=== PATIENT | female | born 1985 | race Caucasian/White ===

== ENCOUNTER 2020-10-10 09:23 | Emergency (ER) | payer OTHER, SELFPAY ==
--- NOTE | ~2020-10-10 | XR_ITS ---
EXAMINATION: XR chest 2V DATE: 10/10/2020 10:45 INDICATION: Tachycardia TECHNIQUE: PA and lateral views of the chest were obtained. COMPARISON: None FINDINGS: The lungs are clear with no focal airspace opacities, pulmonary edema, pleural effusion or pneumothor ax. The cardiomediastinal silhouette is normal. Cholecystectomy clips in the right upper quadrant. Vi sualized bones and soft tissues are unremarkable. IMPRESSION: 1. No acute cardiopulmonary disease. Reviewed, dictated and finalized at location A. IVING INSTRUCTOR
--- NOTE | ~2020-10-10 | CT_ITS ---
EXAMINATION: CT abdomen pelvis wo con EXAM DATE: 10/10/2020 10:31 INDICATION: Epigastric abdominal pain. TECHNIQUE: Spiral CT of the abdomen and pelvis was performed without contrast. Axial, coronal and s agittal images were reviewed. The dose-length product (DLP) for this examination was 336.76 mGy-cm. The exposure was tailored according to patient size (auto mA exposure control), and iterative recons truction (ASIR) was used as additional dose reduction technique. Comparison is made to prior examinat ion from 01/02/2011. FINDINGS: The liver, spleen, adrenal glands and pancreas are unremarkable. There are cholecystectomy clips. There are several small right calyceal stones. No hydronephrosis or ureteral stones. There i s a 2 cm left renal cyst. Uterus is retroverted. Right ovary measures 3 x 5 cm without adjacent infl ammation. The bladder is unremarkable. There is no retroperitoneal or pelvic lymphadenopathy. There are surgical changes consistent with appendectomy. The stomach and small bowel are unremarkab le. There is expected amount of colonic stool. No free intraperitoneal gas. The heart is normal in size. There are no pericardial or pleural effusions. The lung bases are unremarkable. There is new region of vague sclerosis in the right iliac crest compared to prior study in 2010, most likely benign finding. There are several bone islands which are unchanged compared to prior study. IMPRESSION: 1. No acute intra-abdominal findings. 2. Vague sclerotic region in right iliac crest, likely benign given patient's age and assumed absenc e of known primary malignancy. If clinically indicated, could obtain follow-up nonemergent bone scan. Reviewed, dictated and finalized at location G. K WORKER IMPRESSION: 1. No acute intra-abdominal findings. 2. Vague sclerotic region in right iliac crest, likely benign given patient's age and assumed absence of known primary malignancy. If clinically indicated, c ould obtain follow-up nonemergent bone scan.
[2020-10-10 09:35] VITALS: BP 108/77; PULSE 72; RESP 18; TEMP 36.1; O2SAT 99
--- NOTE | 2020-10-10 09:38 | ED.ABDPAIN ---
HPI - Abdominal Pain General Chief Complaint: Abdominal Pain Stated Complaint: UPPER ABD PAIN Time Seen by Provider: 10/10/20 09:38 Source: patient and family Mode of arrival: ambulatory Limitations: no limitations History of Present Illness HPI narrative: Patient is a 35-year-old female with a history of cholecystectomy, appendectomy, who presents for evaluation of upper abdominal pain. Patient states she initially awakened around 4 in the morning with upper back pain, epigastric abdominal pain described as a pressure. She denied any chest pain, denies any shortness of breath. No pleuritic pain. She denies fever or chills. She has had nausea and vomiting. She denies lower abdominal pain. Patient states he feels similar to when she initially had gallbladder attacks. No urinary symptoms. No diarrhea. Patient is not a smoker. No recent car or air travel, no recent surgery. Related Data Allergies Allergy/AdvReac Type Severity Reaction Status Date / Time gadobenic acid Allergy Unknown Itching Verified 10/10/20 10:08 [From contrast - MRI] Iodinated Contrast Media Allergy Unknown Itching Verified 10/10/20 10:08 iohexol Allergy Unknown Itching Verified 10/10/20 10:08 [From contrast - CT, X-RAY] Review of Systems Review of Systems: Narrative: CONSTITUTIONAL: Denies fever, chills, or sweats. EYES: Denies visual changes, redness, or discharge. ENT: Denies rhinorrhea, congestion, sore throat, or otalgia. CARDIOVASCULAR: Denies chest pain, reports intermittent palpitations over the past 3 days. RESPIRATORY: Denies cough or dyspnea. GASTROINTESTINAL: Reports epigastric abdominal pain, nausea and vomiting GENITOURINARY: Denies dysuria or hematuria. SKIN: Denies rash or itching. MUSCULOSKELETAL: Reports upper back pain NEUROLOGIC: Denies headache, numbness, or weakness. [facility] Past Medical History Medical History (Updated 10/10/20 @ 11:39 by Lydia Childers MD) No pertinent past medical history Surgical History Surgical History (Updated 10/10/20 @ 09:51 by Lydia Childers MD) History of appendectomy Hx of cholecystectomy Social History Social History (Updated 10/10/20 @ 09:51 by Lydia Childers MD) Smoking status: Never smoker Alcohol intake: current Alcohol use details: Social, rare Substance use: never Living arrangements: with family Gender identity (if verbalized by the patient): Female Exam Narrative: Exam Narrative: GENERAL: Awake, alert, conversant HEAD: Normocephalic, atraumatic. EYES: PERRLA and EOMI. ENT: Nares clear, no rhinorrhea or epistaxis. Mucous membranes moist. NECK: Supple. CHEST: No respiratory distress, breathing even and non labored HEART: Regular rate, sinus rhythm ABDOMEN:Non distended, mild tenderness in the epigastrium which reproduces pain, guarding, no rebound, nonrigid EXTREMITIES: Normal range of motion. No edema. SKIN: Warm, dry, no rash. NEURO:No focal deficits. Alert and oriented x3 Course Vital Signs Vital signs: Vital Signs Temperature 36.1 C L 10/10/20 09:35 Pulse Rate 72 10/10/20 09:35 Respiratory Rate 18 10/10/20 09:35 Blood Pressure 108/77 10/10/20 09:35 Pulse Oximetry 99 10/10/20 09:35 Temperature 36.1 C L 10/10/20 09:35 Pulse Rate 65 10/10/20 11:00 Respiratory Rate 18 10/10/20 09:35 Blood Pressure 108/67 10/10/20 11:00 Pulse Oximetry 99 10/10/20 11:00 MDM - Abdominal Pain MDM Narrative Medical decision making narrative: Patient presented for epigastric pain, radiation to the back with concern for intermittently rapid heart rate. At the time of assessment, patient's vital signs are stable. No sign of arrhythmia. No hypotension. Patient is afebrile and in no acute distress. Mild epigastric tenderness on exam. No lower abdominal tenderness. Patient was given IV fluids, antiemetic to help with pain management and nausea. Patient was reassessed, and patient's abdomen is soft without significant pain
[2020-10-10 09:45] VITALS: BP 122/87; PULSE 91; O2SAT 99
--- NOTE | 2020-10-10 09:48 | ECG_ITS ---
Measurements Intervals [place] Rate: 68 P: 27 NE: 161 QRS: 54 QRSD: 80 T: 59 QT: 379 QTc: 404 Interpretive Statements SINUS RHYTHM NORMAL ECG Electronically Signed On 10-10-2020 11:04:08 HAND CUTTER by Dimitry Miller D.O.
[2020-10-10 09:50] LABS: Basophils Absolute Auto 0.1 K/mm3 (0.0-0.1); Basophils Percent Auto 0.7 % (0.2-1.2); Eosinophils Percent Auto 0.3 % (0-4.4); Hematocrit 43.1 % (37.0-47.0); Hemoglobin 14.6 g/dL (12.0-15.0); Immature Granulocyte Absolute 0.02 K/mm3 (0.00-0.031); Immature Granulocyte Percent A 0.2 % (0-0.5); Lymphocytes Absolute Auto 1.51 K/mm3 (0.9-3.2); Lymphocytes Percent Auto 14.8 % (18.3-44.2); Mean Corpuscular HGB Conc 33.9 g/dl (32-36); Mean Corpuscular Volume 88.7 fl (80-100); Mean Platelet Volume 10.2 fl (7.4-10.4); Monocytes Absolute Auto 0.4 K/mm3 (0.1-0.6); Monocytes Percent Auto 3.4 % (2.6-8.5); Neutrophils Absolute Auto 8.2 K/mm3 (1.3-6.7); Neutrophils Percent Auto 80.6 % (45.5-73.1); Platelet Count Result 278 k/mm3 (150-375); Red Blood Count 4.86 M/mm3 (4.2-5.4); Red Cell Distribution Width 12.5 % (11.5-14.5); White Blood Count 10.2 K/mm3 (4.5-10.0)
[2020-10-10 09:54] LABS: Add Urine Microscopic? YES; Appearance Urine Clear (Clear); Bilirubin Urine Negative (Negative); Blood Urine 1+ (Negative); Color Urine Colorless (Yellow); Glucose Urine UA Negative (Negative); Ketones Urine Negative (Negative); Leukocyte Esterase Ur 1+ LEU/UL (Negative); Nitrate Urine Negative (Negative); Protein Urine Negative (Negative); RBC Urine 0-2 /hpf (0-2); Specific Grav Ur 1.005 (1.001-1.035); Squamous Epithelial Cell Urine Moderate /hpf (Few); Urobilinogen Urine Negative mg/dL (<2.0)
[2020-10-10 10:00] VITALS: BP 108/77; PULSE 79; O2SAT 98
[2020-10-10 10:15] VITALS: BP 115/71; PULSE 73; O2SAT 100
[2020-10-10 10:16] LABS: Alanine Aminotransferase 18 U/L (4-35); Albumin Level 4.6 g/dL (3.5-5.1); Alkaline Phosphatase 63 U/L (38-126); Anion Gap 7 mmol/L (8-16); Aspartate Amino Transferase 25 U/L (14-36); Bilirubin,Total 0.4 mg/dL (0.2-1.3); Blood Urea Nitrogen 8 mg/dL (7-17); Calcium 9.2 mg/dL (8.4-10.2); Carbon Dioxide 27 mmol/L (22-30); Chloride 105 mmol/L (98-107); Estimated CRCL calculation 108 ml/min; Estimated Glomerular Filt Rate > 60; Glucose 107 mg/dL (65-105); Lipase 49 U/L (23-300); Potassium 3.9 mmol/L (3.4-5.0); Sodium 139 mmol/L (137-145)
--- NOTE | 2020-10-10 10:17 | PC.NURSE ---
called chemjosephine, added on Trop I 1012 called heme, added on PT INR PTT and D Dimer 1016
[2020-10-10] MEDS: ONDANSETRON INJ 4 MG/2 ML VIAL IV PUSH (10:20)
[2020-10-10] MEDS: SODIUM CHLORIDE 0.9% IV 1,000 ML 999 ML IV CONT (10:20)
[2020-10-10] MEDS: FAMOTIDINE 20 MG/2 ML VIAL IV PUSH (10:21)
[2020-10-10] MEDS: MORPHINE SULFATE (*CRX) 4 MG/ML INJ IV PUSH (10:22)
[2020-10-10 10:31] LABS: INR 0.9; Partial Thromboplastin Time 27.6 SECONDS (22.3-36.8); Prothrombin Time 12.6 Seconds (11.1-14.7)
[2020-10-10 10:39] LABS: D Dimer 0.27 ug/mL (<0.48)
[2020-10-10 10:40] LABS: Troponin I < 0.012 ng/mL (0.000-0.034)
[2020-10-10 11:00] VITALS: BP 108/67; PULSE 65; O2SAT 99
--- NOTE | 2020-10-10 11:18 | PC.NURSE ---
Pt states she is feeling better and is requesting something to eat. Explained awaiting results and disposition. Amb to bathroom without difficulty.
[2020-10-10 11:55] VITALS: BP 91/66; PULSE 66; RESP 14; O2SAT 100
== END 2020-10-10 12:00 | disposition home or self-care (01) ==
PROVIDERS: Emergency Provider Emergency Medicine; PCP Family Medicine
DX: R10.13 Epigastric pain (principal); M89.9 Disorder of bone, unspecified
CPT/HCPCS: 36415; 71046; 74176; 80053; 81001; 81025; 83690; 84484; 85025; 85380; 85610; 85730; 93005; 96361; 96374; 96375; 99284; J2270; J2405; J7030

== ENCOUNTER 2023-03-14 08:57 | Emergency (ER) | payer OTHER, SELFPAY ==
--- NOTE | 2023-03-14 09:09 | ED.GENADULT ---
HPI - General Adult General Chief complaint: Skin/Abscess/Foreign Body Stated complaint: Rash Time Seen by Provider: 03/14/23 09:09 Source: patient Mode of arrival: ambulatory Limitations: no limitations History of Present Illness HPI narrative: 7-year-old female patient presents to the [facility] with complaints of a rash to bilateral lower extremities, trunk and bilateral arms that started yesterday. Patient states she recently returned from a cruise this past Wednesday but states that the wrap rash came on suddenly yesterday is complaining of itching. Denies any sick symptoms or fevers. Related Data Home Medications Medication Instructions Recorded Confirmed No Home Medications 03/14/23 03/14/23 Allergies Allergy/AdvReac Type Severity Reaction Status Date / Time gadobenic acid AdvReac Mild Itching Verified 03/14/23 09:11 [From contrast - MRI] Iodinated Contrast Media AdvReac Mild Itching Verified 03/14/23 09:11 iohexol AdvReac Mild Itching Verified 03/14/23 09:11 [From contrast - CT, X-RAY] Review of Systems Review of Systems: CONSTITUTIONAL: Denies fever, chills, or sweats. EYES: Denies visual changes, redness, or discharge. ENT: Denies rhinorrhea, congestion, sore throat, or otalgia. CARDIOVASCULAR: Denies chest pain, palpitations, or edema. RESPIRATORY: Denies cough or dyspnea. GASTROINTESTINAL: Denies abdominal pain, nausea, vomiting, or diarrhea. GENITOURINARY: Denies dysuria or hematuria. SKIN: Positive rash and itching. MUSCULOSKELETAL: Denies back pain, joint pain, or myalgia. NEUROLOGIC: Denies headache, numbness, or weakness. PSYCHIATRIC: Denies anxiety or depression. [facility] Past Medical History Medical History No pertinent past medical history Surgical History Surgical History History of appendectomy Hx of cholecystectomy Social History Social History Smoking status: Never smoker Alcohol intake: current Alcohol use details: Social, rare Substance use: never Living arrangements: with family Gender identity (if verbalized by the patient): Female Comments At the time of my signature I agree with nursing past medical history, surgical, social, and family history. There is no relevant family history pertinent to the presenting complaint. Exam Narrative: GENERAL: Well-appearing, well-nourished, and in no acute distress. HEAD: Normocephalic, atraumatic. EYES: PERRLA and EOMI. ENT: Nares clear, no rhinorrhea or epistaxis. Mucous membranes moist. NECK: Supple. No lymphadenopathy CHEST: Clear to auscultation. No respiratory distress. HEART: Regular rate and rhythm. No murmur heard. Normal peripheral pulses. ABDOMEN: Soft, nontender, nondistended, normal active bowel sounds. EXTREMITIES: Normal range of motion. No edema. SKIN: patient has maculopapular round and oval shaped rash that appears peak to cm in color that is generalized over the bilateral lower extremities, bilateral upper extremities trunk and back. NEURO: No focal deficits. Alert and oriented x3. Course Course Level of Care: Express Care Visit Vital Signs Vital signs: Vital Signs Temperature 36.0 C L 03/14/23 09:15 Pulse Rate 70 03/14/23 09:15 Respiratory Rate 20 03/14/23 09:15 Blood Pressure 110/67 03/14/23 09:15 Pulse Oximetry 100 03/14/23 09:15 Oxygen Delivery Room Air 03/14/23 09:15 Temperature 36.0 C L 03/14/23 09:15 Pulse Rate 70 03/14/23 09:15 Respiratory Rate 20 03/14/23 09:15 Blood Pressure 110/67 03/14/23 09:15 Pulse Oximetry 100 03/14/23 09:15 Oxygen Delivery Room Air 03/14/23 09:15 Vital signs reviewed Medical Decision Making [facility] Narrative Medical decision making narrative: Care patient is discharged home with daily antihistamine to help with itching along with a trip
[2023-03-14 09:15] VITALS: BP 110/67; PULSE 70; RESP 20; TEMP 36; O2SAT 100
== END 2023-03-14 09:21 | disposition home or self-care (01) ==
PROVIDERS: Emergency Provider Nurse Practitioner Family; PCP Physician Assistant Medical
DX: L50.9 Urticaria, unspecified (principal)
CPT/HCPCS: 99213; G0463

== ENCOUNTER 2024-01-17 08:18 | Emergency (ER) | payer OTHER, SELFPAY ==
[2024-01-17 08:35] VITALS: BP 110/92; PULSE 81; RESP 16; TEMP 36.4; O2SAT 98
--- NOTE | 2024-01-17 08:39 | ED.EYEPROB ---
HPI - Eye Problem General Chief complaint: Eye Problems Stated complaint: knot on eyelid Time Seen by Provider: 01/17/24 08:40 Source: patient and RN notes reviewed Mode of arrival: ambulatory Limitations: no limitations History of Present Illness HPI Narrative: 38-year-old female presents concern for a ?knot? on her left upper eyelid. Reports she noticed it Wednesday, it worsened yesterday. She has warm compresses without relief. She reports she gets styes but your usually on her lash line and warm compresses make it go away. She denies pain, but reports tenderness with palpation. Denies drainage or drainage from the eye MD chief complaint: eye redness Related Data Allergies Allergy/AdvReac Type Severity Reaction Status Date / Time gadobenic acid AdvReac Mild Itching Verified 01/17/24 08:35 [From contrast - MRI] Iodinated Contrast Media AdvReac Mild Itching Verified 01/17/24 08:35 iohexol AdvReac Mild Itching Verified 01/17/24 08:35 [From contrast - CT, X-RAY] Review of Systems Review of Systems: CONSTITUTIONAL: Denies malaise, chills, sweats, or fever. EYES: Denies visual changes. Reports a bump on her left upper eyelid ENT: Denies rhinorrhea, congestion, sinus pain, otalgia or sore throat. SKIN: Denies rash or itching. NEUROLOGIC: Denies numbness, weakness, or headache. PSYCHIATRIC: Denies anxiety or depression. All systems reviewed & are unremarkable except as noted in HPI and below PMFSH Past Medical History Medical History No pertinent past medical history Surgical History Surgical History History of appendectomy Hx of cholecystectomy Social History Social History Smoking status: Never smoker Alcohol intake: current Alcohol use details: Social, rare Substance use: never Living arrangements: with family Gender identity (if verbalized by the patient): Female Comments At time of signature, agree with nursing past medical, surgical, social and family history. There is no relevant family history pertinent to the presenting complaint Exam Narrative: GENERAL: Well-appearing, well-nourished, and in no acute distress. HEAD: Normocephalic, atraumatic. EYES: PERRLA, sclera clear, and EOMI. No nystagmus. Bilateral conjunctivae and sclera clear. Right Upper and lower eyelid unremarkable, no periorbital edema noted. Hordeolum externum noted on the left upper eyelid ENT: Nares clear, turbinates pink, no rhinorrhea or epistaxis. Mucous membranes moist. NECK: Supple. CHEST: No respiratory distress. Speaks in full sentences. HEART: Regular rate and rhythm. SKIN: Warm, dry, no visible rash. NEURO: Alert and oriented x3. PSYCH: Normal mood and affect Course Course Emergency Course: Patient is aware of diagnosis, understands and agrees to treatment plan. Anticipatory guidance given. Patient agrees to follow-up as directed and is aware of reasons to seek care at the emergency department. Portions of this record may have been created with voice recognition software Level of Care: Express Care Visit Vital Signs Vital signs: Vital Signs Temperature 97.6 F 01/17/24 08:35 Pulse Rate 81 01/17/24 08:35 Respiratory Rate 16 01/17/24 08:35 Blood Pressure 110/92 H 01/17/24 08:35 Pulse Oximetry 98 01/17/24 08:35 Oxygen Delivery Room Air 01/17/24 08:35 Temperature 97.6 F 01/17/24 08:35 Pulse Rate 81 01/17/24 08:35 Respiratory Rate 16 01/17/24 08:35 Blood Pressure 110/92 H 01/17/24 08:35 Pulse Oximetry 98 01/17/24 08:35 Oxygen Delivery Room Air 01/17/24 08:35 Reviewed. MDM - Eye Problem MDM Narrative Medical decision making narrative: Consideration of the following conditions may be warranted for the presenting problem, they are not final diagnoses: Bacterial conjunctivitis, allerg
== END 2024-01-17 08:56 | disposition home or self-care (01) ==
PROVIDERS: Emergency Provider Nurse Practitioner; PCP Physician Assistant Medical
DX: H00.014 Hordeolum externum left upper eyelid (principal)
CPT/HCPCS: 99213; G0463

== ENCOUNTER 2025-03-04 20:10 | Emergency (ER) | payer OTHER, SELFPAY ==
--- OUTSIDE RECORDS SUMMARY | 2025-03-04 20:11 | XMS_ITS | Referral Summary ---
Author Organization [address] Address [address] [place] [address] Care Team Providers Care Lumber Sales Supervisor Name Role Phone Virgil Denney Primary Care Provider [phone] Allergies No known active allergies Medications No known medications Active Problems Problem Noted Date Diagnosed Date Gastroesophageal reflux disease with esophagitis 01/11/2017 Immunizations Immunization Administration Dates Next Due Influenza, Trivalent, Preser vative Free, Intramuscular 07/29/2017 Influenza, Unspecified 09/14/2024(Deferr ed: Patient Refused),03/19/2023(Deferred: Patient decision),06/11/2020(Deferred: Patient Refused) Tdap 07/29/2017,12/07/2014 Social History Tobacco Use Types Packs/Day Years Used Date Smoking Tobacco: Never Smokeless Tobacco: Never Tobacco Cessation:Counseling Given: Not Answered Alcohol Use Standard Drinks/Week Comments Not Currently 0 (1 standard drink = 0.6 oz pur e alcohol) Rare AUDIT-C Answer Date Recorded Q1: How often do you have a drink containing alcohol? Never 09/14/2024 Q2: How many drinks containi ng alcohol do you have on a typical day when you are drinking? Patient does not drink Q3: How often do you have si x or more drinks on one occasion? Never 09/14/2024 PHQ-2 Answer Date Recorded PHQ-2 Total Score (If total score is 3 or more points, staff should administer the PHQ-9) 0 03/20/2024 Comments No Sex and Gender Information Value Date Recorded Sex Assigned at Not on file Legal Sex Female 8:58 PM STOCK CHASER Gender Identity Female 10/18/2020 6:46 PM STOCK CHASER Sexual Orientation Straight 10/18/2020 6: 46 PM STOCK CHASER Last Filed Vital Signs Vital Sign Reading Time Taken Comments Blood Pressure 118/80 09/14/2024 10:56 AM STOCK CHASER Pulse 84 09/14/2024 10:56 AM STOCK CHASER Temperature 36.6 C (97.8 F) 09/14/2024 10:56 AM STOCK CHASER Respiratory Rate 19 03/19/2023 9:30 AM CDT Oxygen Saturation 98% 09/14/2024 10:56 AM STOCK CHASER Inhaled Oxygen Concentration - - Weight 72.6 kg (160 lb) 09/14/2024 10:56 AM STOCK CHASER Height 170.2 cm (5' 7 ) 09/14/2024 10:56 AM STOCK CHASER Body Mass Index 25.06 09/14/2024 10:56 AM STOCK CHASER Plan of Treatment Not on file Insurance [employer] [facility] Care Teams Lumber Sales Supervisor Relationship Specialty Start Date End Date Virgil Denney PA PCP - General Family Medicine 07/01/22
--- OUTSIDE RECORDS SUMMARY | 2025-03-04 20:11 | XMS_ITS | Encounter Summary ---
Author Organization [facility] Care Team Providers Care China And Silverware Salesperson Name Role Phone Wilber Spears MD Primary Care Provider [phone] Virgil Denney Primary Care Provider [phone] Encounter Details Date Type Department Care Team (Latest Contact Info) Description 01/11/2017 Orders Only [facility] ProviderErlinda MD [address] [place] [id number] Social History Tobacco Use Types Packs/Day Years Used Date Smoking Tobacco: Never Assessed Comments Unknown Sex and Gender Information Value Date Recorded Sex Assigned at Not on file Legal Sex Female 8:58 PM CASING MACHINE OPERATOR Gender Identity Female 10/18/2020 6:46 PM CASING MACHINE OPERATOR Sexual Orientation Straight 10/18/2020 6: 46 PM CASING MACHINE OPERATOR documented as of this encounter Plan of Treatment Not on file documented as of this encounter Procedures Procedure Name Priority Date/Time Associated Diagnosis Comments CARDIOLOGY REPORT 01/11/2017 12: 00 AM CDT documented in this encounter Results * CARDIOLOGY REPORT (01/11/2017 12:00 AM CDT) Anatomical Region Laterality Modality Other Narrative 01/11/2017 12:00 AM CDT Ordered by an unspecified provider. Historical Provider [facility] JAMARCUS ALVARADO Final Result documented in this encounter Visit Diagnoses Not on filedocumented in this encounter Care Teams China And Silverware Salesperson Relationship Specialty Start Date End Date Wilber Spears MD PCP - General Family Medicine 10/15/20 06/30/22 Virgil Denney PA PCP - General Family Medicine 07/01/22 documented as of this encounter
--- OUTSIDE RECORDS SUMMARY | 2025-03-04 20:11 | XMS_ITS | Clinical Summary ---
Author Organization [facility] [address] [place] [address] Address [address] [place] [address] Care Team Providers Care Senior Oracle Developer Name Role Phone Virgil Denney Primary Care Provider [phone] Allergies No known active allergies Medications No known medications Active Problems Problem Noted Date Diagnosed Date Gastroesophageal reflux disease with esophagitis 01/11/2017 Immunizations Immunization Administration Dates Next Due Influenza, Trivalent, Preser vative Free, Intramuscular 07/29/2017 Influenza, Unspecified 09/14/2024(Deferr ed: Patient Refused),03/19/2023(Deferred: Patient decision),06/11/2020(Deferred: Patient Refused) Tdap 07/29/2017,12/07/2014 Surgical History Surgery Date Site/Laterality Comments APPENDECTOMY 12/09/2010 - 01/08/2011 CHOLECYSTECTOMY 12/09/2012 - 01/08/2013 Family History Medical History Relation Name Comments No Known Problems Brother 1 No Known Problems Brother 2 Heart disease Maternal Grandfather Ovarian cancer Maternal Grandmother Skin cancer Mother No Known Problems Paternal Grandfather No Known Problems Paternal Grandmother Relation Name Status Comments Brother 1 Alive Brother 2 Alive Father Alive Maternal Grandfather Maternal Grandmother Mother Alive Paternal Grandfather Alive Paternal Grandmother Alive Social History Tobacco Use Types Packs/Day Years [...] on file Legal Sex Female 8:58 PM TRAINING AND QUALITY MANAGER Gender Identity Female 10/18/2020 6:46 PM TRAINING AND QUALITY MANAGER Sexual Orientation Straight 10/18/2020 6: 46 PM TRAINING AND QUALITY MANAGER Obstetrics History Last Filed Vital Signs Vital Sign Reading Time Taken Comments Blood Pressure 118/80 09/14/2024 10:56 AM TRAINING AND QUALITY MANAGER Pulse 84 09/14/2024 10:56 AM TRAINING AND QUALITY MANAGER Temperature 36.6 C (97.8 F) 09/14/2024 10:56 AM TRAINING AND QUALITY MANAGER Respiratory Rate 19 03/19/2023 9:30 AM CDT Oxygen Saturation 98% 09/14/2024 10:56 AM TRAINING AND QUALITY MANAGER Inhaled Oxygen Concentration - - Weight 72.6 kg (160 lb) 09/14/2024 10:56 AM TRAINING AND QUALITY MANAGER Height 170.2 cm (5' 7 ) 09/14/2024 10:56 AM TRAINING AND QUALITY MANAGER Body Mass Index 25.06 09/14/2024 10:56 AM TRAINING AND QUALITY MANAGER Plan of Treatment Health Maintenance Due Date Last Done Comments Cervical Cancer Screening 1985 Hepatitis C Screening 1985 Varicella Vaccines (1 of 2 - 13+ 2-dose series) 1998 Hepatitis B Screening 2003 Covid-19 Vaccine ( season) 2024 05/29/2021, 05/08/2021 Depression Screening 03/20/2025 03/20/2024, 07/01/2022, 05/13/2021, Additional history exists Regular Well Visit/Exam 18-64 03/20/2025 03/20/2024, 05/13/2021 Influenza Vaccine (Season Ended) 2025 07/29/2017 DTaP/Tdap/Td Vaccine (3 - Td or Tdap) 07/29/2027 07/29/2017, 12/07/2014 HPV Vaccines Aged Out No longer eligi ble based on patient's age to complete this topic Pneumococcal vaccine <65 Aged Out No longer eligible based on patient's age to complete this topic Insurance [facility] OPEN ACCESS [facility] [employer] Address: [facility] [id number] [place] [address] [facility] [employer] Care Teams Senior Oracle Developer Relationship Specialty Start Date End Date Virgil Denney PA PCP - General Family Medicine 07/01/22
[2025-03-04 20:16] VITALS: BP 125/76; PULSE 75; RESP 18; TEMP 36.7; O2SAT 100
--- OUTSIDE RECORDS SUMMARY | 2025-03-04 22:49 | XMS_ITS | Encounter Summary ---
Author Organization [facility] Care Team Providers Care Wallpaper Inspector And Shipper Name Role Phone Wilber Spears MD Primary Care Provider [phone] Virgil Denney Primary Care Provider [phone] Encounter Details Date Type Department Care Team (Latest Contact Info) Description 01/11/2017 Orders Only [facility] ProviderErlinda MD [address] [place] [address] Social History Tobacco Use Types Packs/Day Years Used Date Smoking Tobacco: Never Assessed Comments Unknown Sex and Gender Information Value Date Recorded Sex Assigned at Not on file Legal Sex Female 8:58 PM HEALTH EDITOR Gender Identity Female 10/18/2020 6:46 PM HEALTH EDITOR Sexual Orientation Straight 10/18/2020 6: 46 PM HEALTH EDITOR documented as of this encounter Plan of [...] on filedocumented in this encounter Care Teams Wallpaper Inspector And Shipper Relationship Specialty Start Date End Date Wilber Spears MD PCP - General Family Medicine 10/15/20 06/30/22 Virgil Denney PA PCP - General Family Medicine 07/01/22 documented as of this encounter
--- OUTSIDE RECORDS SUMMARY | 2025-03-04 22:50 | XMS_ITS | Referral Summary ---
Author Organization [address] Address [address] [place] [address] Care Team Providers Care Forest Botany Instructor Name Role Phone Virgil Denney Primary Care Provider [phone] Allergies No known active allergies Medications No [...] on file Legal Sex Female 8:58 PM BILLING SERVICES MANAGER Gender Identity Female 10/18/2020 6:46 PM BILLING SERVICES MANAGER Sexual Orientation Straight 10/18/2020 6: 46 PM BILLING SERVICES MANAGER Last Filed Vital Signs Vital Sign Reading Time Taken Comments Blood Pressure 118/80 09/14/2024 10:56 AM BILLING SERVICES MANAGER Pulse 84 09/14/2024 10:56 AM BILLING SERVICES MANAGER Temperature 36.6 C (97.8 F) 09/14/2024 10:56 AM BILLING SERVICES MANAGER Respiratory Rate 19 03/19/2023 9:30 AM CDT Oxygen Saturation 98% 09/14/2024 10:56 AM BILLING SERVICES MANAGER Inhaled Oxygen Concentration - - Weight 72.6 kg (160 lb) 09/14/2024 10:56 AM BILLING SERVICES MANAGER Height 170.2 cm (5' 7 ) 09/14/2024 10:56 AM BILLING SERVICES MANAGER Body Mass Index 25.06 09/14/2024 10:56 AM BILLING SERVICES MANAGER Plan of Treatment Not on file Insurance [employer] [facility] CHO[facility] PLUS Care Teams Forest Botany Instructor Relationship Specialty Start Date End Date Virgil Denney PA PCP - General Family Medicine 07/01/22
--- OUTSIDE RECORDS SUMMARY | 2025-03-04 22:50 | XMS_ITS | Clinical Summary ---
Author Organization [facility] [address] [place] [address] [address] [place] [address] Care Team Providers Care Jammer Operator Name Role Phone Virgil Denney Primary Care Provider [phone] Allergies No known active allergies Medications No [...] on file Legal Sex Female 8:58 PM DIGITAL MARKETING LEAD Gender Identity Female 10/18/2020 6:46 PM DIGITAL MARKETING LEAD Sexual Orientation Straight 10/18/2020 6: 46 PM DIGITAL MARKETING LEAD Obstetrics History Last Filed Vital Signs Vital Sign Reading Time Taken Comments Blood Pressure 118/80 09/14/2024 10:56 AM DIGITAL MARKETING LEAD Pulse 84 09/14/2024 10:56 AM DIGITAL MARKETING LEAD Temperature 36.6 C (97.8 F) 09/14/2024 10:56 AM DIGITAL MARKETING LEAD Respiratory Rate 19 03/19/2023 9:30 AM CDT Oxygen Saturation 98% 09/14/2024 10:56 AM DIGITAL MARKETING LEAD Inhaled Oxygen Concentration - - Weight 72.6 kg (160 lb) 09/14/2024 10:56 AM DIGITAL MARKETING LEAD Height 170.2 cm (5' 7 ) 09/14/2024 10:56 AM DIGITAL MARKETING LEAD Body Mass Index 25.06 09/14/2024 10:56 AM DIGITAL MARKETING LEAD Plan of Treatment Health Maintenance Due Date [...] patient's age to complete this topic Insurance [facility] Gift Card [employer] Address: [facility] [address] [place] [address] [facility] H[facility]/PPO Address: [address] [address] [place] [address] Care Teams Jammer Operator Relationship Specialty Start Date End Date Virgil Denney PA PCP - General Family Medicine 07/01/22
--- NOTE | 2025-03-04 23:33 | ED.WOUNDLAC ---
HPI - Wound/Laceration General Chief Complaint: Wound/Laceration Stated Complaint: cyst on arm Time Seen by Provider: 03/04/25 21:53 Source: patient Mode of arrival: ambulatory Limitations: no limitations History of Present Illness HPI narrative: Patient presents with a lesion on the back of her arm. It had been present for 2 years and evaluated by both alteration manager and PCP who noted it was a cyst and did not recommend drainage. Possibly started as an infected bug bite per patient. 2 days ago it started becoming red. More inflamed and itchy starting yesterday. No fevers or chills. Warm to the touch. no history MRSA. No antibiotic allergies. Not taking any pain meds at home, Pain 3/10 in severity. Related Data Allergies Allergy/AdvReac Type Severity Reaction Status Date / Time gadobenic acid (From AdvReac Mild Itching Verified 03/04/25 20:19 contrast - MRI) Iodinated Contrast Media AdvReac Mild Itching Verified 03/04/25 20:19 iohexol (From contrast - CT, AdvReac Mild Itching Verified 03/04/25 20:19 X-RAY) PMFSH Past Medical History Medical History No pertinent past medical history Surgical History Surgical History History of appendectomy Hx of cholecystectomy Social History Social History Social History: 3 children Smoking status: Never smoker Alcohol intake: current Alcohol use details: Social, rare Substance use: never Living arrangements: with family Gender identity (if verbalized by the patient): Female Exam Narrative: GENERAL: Well-appearing, well-nourished, and in no acute distress. HEAD: Normocephalic, atraumatic. EYES: Non injected, non icteric ENT: Nares clear, no rhinorrhea or epistaxis. Gross auditory acuity intact. NECK: Supple. No meningismus. CHEST: Speaking in full sentences. No respiratory distress. HEART: Regular rate and rhythm. . ABDOMEN: Soft, nondistended. EXTREMITIES: Normal range of motion. No lower extremity edema. SKIN: Warm, dry. Approximately 1cm diameter abscess with central white area without purulent drainage but indurated and with erythema and warmth, tender to palpation on posterior aspect of left upper arm NEURO: No focal deficits. Alert and oriented. Answering questions. Following commands. Normal speech without aphasia or dysarthria. PSYCH: Normal mood and affect. Course Vital Signs Vital signs: Vital Signs Temperature 98.0 F 03/04/25 20:16 Pulse Rate 75 03/04/25 20:16 Respiratory Rate 18 03/04/25 20:16 Blood Pressure 125/76 03/04/25 20:16 Pulse Oximetry 100 03/04/25 20:16 Oxygen Delivery Room Air 03/04/25 20:16 Temperature 98.8 F 03/05/25 00:34 Pulse Rate 68 03/05/25 00:34 Respiratory Rate 16 03/05/25 00:34 Blood Pressure 117/90 03/05/25 00:34 Pulse Oximetry 97 03/05/25 00:34 Oxygen Delivery Room Air 03/04/25 20:16 Procedures Abscess I/D upper extremity: Date of Incision: 03/04/25 Time of Incision: 23:58 Side (if applicable): left Sedation/analgesia: none Local Anesthetic: lidocaine 1% Amount of anesthesia used (mL): 3 Technique: incised with #11 blade Amount of fluid expressed (mL): 1 Irrigation: No Packing used?: none I&D Results: Pus and Blood Abcess I&D Additional Comments: No complications MDM - Wound/Laceration MDM Narrative Medical decision making narrative: Patient presents with a lesion on the back of her upper left arm. It had been present for 2 years and alteration manager and PCP noted it was a cyst and did not recommend draining it. However, 2 days ago started becoming red, inflamed, itchy and tender to the touch. In the emergency department they are afebrile with vital signs within normal limits. Point of care ultrasound performed which shows abscess 1cm x 1cm x 1.5cm. I&D as above. Culture obtained. Patient given antibiotics and advised follow up, wound care instructions, and return precautions which she understands and is comfortable with. Differential Diagnosis Differential diagnosis: Likely abscess Discharge Plan Discharge Clinical Impression: Abscess of arm, left, Status post incision and drainage Patient Disposition: Home Condition: Stable Instructions: Antibiotic Form, Abscess Follow-up (ED), Abscess Incision and Drainage (DC) Additional Instructions: Keep the area clean warm and dry. Follow-up with your primary care physician/alteration manager. Return to the emergency department with any new, worsening symptoms such as fever greater than 100.4? F, spreading redness/infection. Acetaminophen/Tylenol (maximum 4000 mg per day) is safe to take with NSAIDs (ibuprofen/Motrin) for pain relief. You received 1st dose of antibiotic in the emergency department with rest the course prescribed. Patient Language: British Prescriptions: New acetaminophen 500 mg capsule 1,000 mg PO Q6H PRN (Reason: pain) Qty: 20 0RF ibuprofen 600 mg tablet 600 mg PO TID PRN (Reason: pain) Qty: 20 0RF cephalexin 500 mg capsule 500 mg PO Q8H 5 Days Qty: 15 0RF No Action erythromycin 5 mg/gram (0.5 %) ointment 0.5 inch LEFT EYE TID Qty: 3.5 0RF Follow-up/Referrals: Олег,BANDAR Herman [Primary Care Provider] - Stand Alone Forms: Work/School Release IP Time of Disposition: 00:16
--- NOTE | 2025-03-04 23:36 | PC.NURSE ---
edp prado at bedside for assessment.
--- NOTE | 2025-03-04 23:44 | PC.NURSE ---
scapel 11, betadine swabs, non stick pad, kerlix, tape at bedside, with lido1%
[2025-03-05] MEDS: CEPHALEXIN 500 MG CAPSULE PO (00:30)
[2025-03-05] MEDS: LIDOCAINE 1% LOCAL INJ 10 ML VIAL 5 ML INFILTRATE (00:30)
[2025-03-05 00:34] VITALS: BP 117/90; PULSE 68; RESP 16; TEMP 37.1; O2SAT 97
== END 2025-03-05 00:35 | disposition home or self-care (01) ==
PROVIDERS: Emergency Provider Student in an Organized Health Care Education/Training Program; PCP Physician Assistant Medical
DX: L02.414 Cutaneous abscess of left upper limb (principal)
CPT/HCPCS: 10060; 87070; 87075; 87181; 87205; 99283; A9270; J2003